=== PATIENT | male | born 1970 | race Caucasian/White ===

== ENCOUNTER 2017-06-01 20:27 | Emergency (ER) | payer BC ==
[~2017-06-01] VITALS: Ht 175.3 cm; Wt 80.0 kg
[~2017-06-01 20:27] MED LIST: PRIL20TA2 PO
[2017-06-01 20:30] VITALS: BP 195/115; PULSE 88; RESP 16; TEMP 98.9; O2SAT 97
[2017-06-01 22:15] VITALS: BP 184/110; PULSE 88; RESP 18; O2SAT 99
[2017-06-01] MEDS ORDERED: SODIUM CHLOR 0.9% 1000 ML INJ 1,000 ML IV SCH (22:30)
[2017-06-01] MEDS ORDERED: SODIUM CHLORIDE 0.9% FLUSH 10 ML FLUSH IV FLUSH PRN (22:30)
[2017-06-01 22:43] VITALS: O2SAT 100
[2017-06-01 23:03] LABS: AUTOMATED NEUTROPHIL # 9.8 TH/MM3 (1.8-7.7); BASOPHIL # 0.1 TH/MM3 (0-0.2); BASOPHIL % 0.6 % (0.0-2.0); EOSINOPHIL # 0.2 TH/MM3 (0-0.4); EOSINOPHIL % 1.2 % (0.0-4.0); HEMATOCRIT 45.2 % (39.0-51.0); HEMO FLAGS DIFF FINAL; LYMPH % 20.5 % (9.0-44.0); LYMPHOCYTE # 2.9 TH/MM3 (1.0-4.8); MEAN CORPUSCULAR HEMOGLOBIN 31.6 PG (27.0-34.0); MEAN CORPUSCULAR HGB CONC 34.7 % (32.0-36.0); MONO % 8.7 % (0.0-8.0); PLATELET COUNT 296 TH/MM3 (150-450); RED BLOOD COUNT 4.97 MIL/MM3 (4.50-5.90); RED CELL DISTRIBUTION WIDTH 12.6 % (11.6-17.2); WHITE BLOOD COUNT 14.2 TH/MM3 (4.0-11.0)
[2017-06-01 23:09] LABS: BLOOD, URINE TRACE (NEG); GLUCOSE,URINE NEG (NEG); KETONE, URINE NEG (NEG); NITRITE,URINE NEG (NEG); PH, URINE 6.5 (5.0-8.5); URINE COLOR YELLOW (YELLW/STRAW)
[2017-06-01 23:11] LABS: COMMENT (UR) CULT NOT INDICATED; CULTURE IF INDICATED CULT NOT INDICATED
[2017-06-01 23:26] LABS: ANION GAP 6 MEQ/L (5-15); AST (GOT) 10 U/L (15-37); BICARBONATE 25.6 MEQ/L (21.0-32.0); BLOOD UREA NITROGEN 14 MG/DL (7-18); CHLORIDE 105 MEQ/L (98-107); GLOMERULAR FILTRATION RATE 78 ML/MIN (>89); POTASSIUM 3.4 MEQ/L (3.5-5.1); SODIUM (NA) 137 MEQ/L (136-145)
[2017-06-01 23:27] LABS: ALT (GPT) 21 U/L (12-78)
[2017-06-01 23:29] LABS: ALKALINE PHOSPHATASE 82 U/L (45-117); TOTAL BILIRUBIN ADULT 0.4 MG/DL (0.2-1.0)
--- NOTE | 2017-06-01 23:36 | PD ---
HPI . abdominal pain Chief Complaint: Abdominal Pain Time Seen by Provider: 22:03 Travel History International Travel<30 days: No Contact w/Intl Traveler<30days: No Traveled to known affect area: No History of Present Illness HPI 46 year old male that presents to the ED complaining of abdominal pain. Pain is located in his lower abdomen, suprapubic area. He has had it for 3 days. Describes the pain as dull. Rates it as a 6/10. He only has the pain when he changes positions. He describes that going from sitting to standing is when he experiences the pain. Some radiation through to his back. He does not experience the pain if he just lays still and is at rest. Patient tried some ibuprofen with no relief. He has never had anything like this before. Denies any fevers, nausea, vomiting, diarrhea, dysuria, frequency, or changes in his bowels. Had a bowel movement this morning which he states was normal. PFSH Past Medical History Hx Anticoagulant Therapy: No Cardiovascular Problems: No Chemotherapy: No Cerebrovascular Accident: No Diabetes: No GERD: Yes Respiratory: No Past Surgical History Other Surgery: Yes (R. HEEL SURGERY ) Social History Alcohol Use: No Tobacco Use: Yes (1PPD ) Substance Use: No Allergies-Medications (Allergen,Severity, Reaction): Coded Allergies: No Known Allergies (Unverified , 06/01/17) Reported Meds & Prescriptions Reported Meds & Active Scripts Active No Active Prescriptions or Reported Medications Review of Systems General / Constitutional: No: Fever, Chills HENT: No: Headaches Cardiovascular: No: Chest Pain or Discomfort Respiratory: No: Shortness of Breath, Wheezing Gastrointestinal: Positive: Abdominal Pain, No: Nausea, Vomiting, Diarrhea, Constipation, Loss of Appetite Genitourinary: No: Urgency, Frequency, Dysuria Skin: No Rash Physical Exam Narrative GENERAL: Awake and alert male appearing stated age in no acute distress. SKIN: Focused skin assessment warm/dry. HEAD: Atraumatic. Normocephalic. EYES: Pupils equal and round. No scleral icterus. No injection or drainage. ENT: No nasal bleeding or discharge. Mucous membranes pink and moist. NECK: Trachea midline. No JVD. CARDIOVASCULAR: Regular rate and rhythm. No murmur appreciated. RESPIRATORY: No accessory muscle use. Clear to auscultation. Breath sounds equal bilaterally. No wheezing, crackles, rales, or rhonchi. GASTROINTESTINAL: Abdomen soft, nondistended. Mild tenderness elicited in the right lower quadrant. No suprapubic tenderness. Hepatic and splenic margins not palpable. MUSCULOSKELETAL: No obvious deformities. No clubbing. No cyanosis. No edema. NEUROLOGICAL: Awake and alert. No obvious cranial nerve deficits. Motor grossly within normal limits. Normal speech. PSYCHIATRIC: Appropriate mood and affect; insight and judgment normal. Data Data Last Documented VS Vital Signs Date Time Temp Pulse Resp B/P Pulse Ox O2 Delivery O2 Flow Rate FiO2 06/02/17 01:31 76 18 171/96 98 06/01/17 22:15 Room Air 06/01/17 20:30 98.9 Orders Complete Blood Count With Diff (06/01/17 22:30) Comprehensive Metabolic Panel (06/01/17 22:30) Lipase (06/01/17 22:30) Urinalysis - C+S If Indicated (06/01/17 22:30) Ct Abd/Pel W Iv Contrast(Rout) (06/01/17 22:30) Iv Access Insert/Monitor (06/01/17 22:30) Ecg Monitoring (06/01/17 22:30) Oximetry (06/01/17 22:30) Sodium Chlor 0.9% 1000 Ml Inj (Ns 1000 M (06/01/17 22:30) Sodium Chloride 0.9% Flush (Ns Flush) (06/01/17 22:30) Iohexol 350 Inj (Omnipaque 350 Inj) (06/02/17 00:33) Labs Laboratory Tests Test 06/01/17 06/01/17 20:40 22:40 Urine Color YELLOW Urine Turbidity CLEAR Urine pH 6.5 Urine Specific [place] 1.015 Urine Protein NEG mg/dL Urine Glucose (UA) NEG mg/dL Urine Ketones NEG mg/dL Urine Occult Blood TRACE Urine Nitrite NEG Urine Bilirubin NEG Urine Urobilinogen LESS THAN 2.0 MG/DL Urine Leukocyte Esterase NEG Urine RBC 1 /hpf Urine WBC 1 /hpf Microscopic Urinalysis Comment CULT NOT INDICATED White Blood Count 14.2 TH/MM3 Red Blood Count 4.97 MIL/MM3 Hemoglobin 15.7 GM/DL Hematocrit 45.2 % Mean Corpuscular Volume 91.0 FL Mean Corpuscular Hemoglobin 31.6 PG Mean Corpuscular Hemoglobin 34.7 % Concent Red Cell Distribution Width 12.6 % Platelet Count 296 TH/MM3 Mean Platelet Volume 8.3 FL Neutrophils (%) (Auto) 69.0 % Lymphocytes (%) (Auto) 20.5 % Monocytes (%) (Auto) 8.7 % Eosinophils (%) (Auto) 1.2 % Basophils (%) (Auto) 0.6 % Neutrophils # (Auto) 9.8 TH/MM3 Lymphocytes # (Auto) 2.9 TH/MM3 Monocytes # (Auto) 1.2 TH/MM3 Eosinophils # (Auto) 0.2 TH/MM3 Basophils # (Auto) 0.1 TH/MM3 CBC Comment DIFF FINAL Differential Comment Sodium Level 137 MEQ/L Potassium Level 3.4 MEQ/L Chloride Level 105 MEQ/L Carbon Dioxide Level 25.6 MEQ/L Anion Gap 6 MEQ/L Blood Urea Nitrogen 14 MG/DL Creatinine 1.02 MG/DL Estimat Glomerular Filtration 78 ML/MIN Rate Random Glucose 129 MG/DL Calcium Level 8.9 MG/DL Total Bilirubin 0.4 MG/DL Aspartate Amino Transf 10 U/L (AST/SGOT) Alanine Aminotransferase 21 U/L (ALT/SGPT) Alkaline Phosphatase 82 U/L Total Protein 7.5 GM/DL Albumin 3.9 GM/DL Lipase 119 U/L [facility] Medical Decision Making Medical Screen Exam Complete: Yes Emergency Medical Condition: Yes Interpretation(s) Laboratory Tests Test 06/01/17 06/01/17 20:40 22:40 Urine Color YELLOW Urine Turbidity CLEAR Urine pH 6.5 Urine Specific [place] 1.015 Urine Protein NEG mg/dL Urine Glucose (UA) NEG mg/dL Urine Ketones NEG mg/dL Urine Occult Blood TRACE Urine Nitrite NEG Urine Bilirubin NEG Urine Urobilinogen LESS THAN 2.0 MG/DL Urine Leukocyte Esterase NEG Urine RBC 1 /hpf Urine WBC 1 /hpf Microscopic Urinalysis Comment CULT NOT INDICATED White Blood Count 14.2 TH/MM3 Red Blood Count 4.97 MIL/MM3 Hemoglobin 15.7 GM/DL Hematocrit 45.2 % Mean Corpuscular Volume 91.0 FL Mean Corpuscular Hemoglobin 31.6 PG Mean Corpuscular Hemoglobin 34.7 % Concent Red Cell Distribution Width 12.6 % Platelet Count 296 TH/MM3 Mean Platelet Volume 8.3 FL Neutrophils (%) (Auto) 69.0 % Lymphocytes (%) (Auto) 20.5 % Monocytes (%) (Auto) 8.7 % Eosinophils (%) (Auto) 1.2 % Basophils (%) (Auto) 0.6 % Neutrophils # (Auto) 9.8 TH/MM3 Lymphocytes # (Auto) 2.9 TH/MM3 Monocytes # (Auto) 1.2 TH/MM3 Eosinophils # (Auto) 0.2 TH/MM3 Basophils # (Auto) 0.1 TH/MM3 CBC Comment DIFF FINAL Differential Comment Sodium Level 137 MEQ/L Potassium Level 3.4 MEQ/L Chloride Level 105 MEQ/L Carbon Dioxide Level 25.6 MEQ/L Anion Gap 6 MEQ/L Blood Urea Nitrogen 14 MG/DL Creatinine 1.02 MG/DL Estimat Glomerular Filtration 78 ML/MIN Rate Random Glucose 129 MG/DL Calcium Level 8.9 MG/DL Total Bilirubin 0.4 MG/DL Aspartate Amino Transf 10 U/L (AST/SGOT) Alanine Aminotransferase 21 U/L (ALT/SGPT) Alkaline Phosphatase 82 U/L Total Protein 7.5 GM/DL Albumin 3.9 GM/DL Lipase 119 U/L CT of the abdomen and pelvis reveals no acute findings. Differential Diagnosis Differentials include UTI, appendicitis, pancreatitis, musculoskeletal strain, diverticulitis. Narrative Course Patient presents with 3 days of lower abdominal pain that is worse when he goes to stand and then resolves after a few minutes. No other GI symptoms including nausea, vomiting, diarrhea. IV was established, labs are drawn and sent, and the patient was placed on cardiac telemetry monitoring and continuous pulse oximetry monitoring. CT of the abdomen was ordered. White count is mildly elevated at 14.2. CMP and lipase are unremarkable. UA is negative. CT of the abdomen and pelvis reveals no acute abnormalities. The patient does have pain with flexion of the hips bilaterally in the lower aspect of the abdomen, may be secondary to muscle strain. CT the abdomen and pelvis is negative for appendicitis. Laboratory evaluation is essentially unremarkable except for mildly elevated white count. The patient is advised to follow-up with her primary physician. Nonsteroidal inflammatories as directed. Diagnosis Primary Impression: Abdominal wall strain Qualified Code: S39.011A - Abdominal wall strain, initial encounter Patient Instructions: General Instructions Additional Instructions: Please provide the patient a copy of his CT results and lab results at discharge. Follow-up with her primary physician in regards to her blood pressure. [id number] nonsteroidals as needed for the abdominal wall strain. Return if symptoms worsen or progress. Med/Other Pt SpecificInfo: Prescription(s) given Scripts Hydrocodone-Acetaminophen ([place])5-325 mg Tab1 Tab PO Q6H PRN (PAIN) #10 TAB Ref 0 Prov:Jose Mckeon MD 06/02/17 Ibuprofen 600 Mg Cig194 Mg PO Q6H PRN (Pain/Inflammation) #20 TAB Ref 0 Prov:Jose Mckeon MD 06/02/17 Condition: Stable Jose Mckeon MD Jun 01, 2017 23:36
[2017-06-02] MEDS ORDERED: IOHEXOL 350 MG/ML 10 ML VIAL (for RAD DIAG) IV ONE (00:33)
--- NOTE | 2017-06-02 00:53 | RADRPT ---
EXAM DATE/TIME: 06/02/2017 00:15 [facility] COMPARISON: CT ABDOMEN & PELVIS W CONTRAST, September 21, 2015, 14:26. INDICATIONS : Bilateral lower quadrant pain. IV CONTRAST: 95 cc Omnipaque 350 (iohexol) IV ORAL CONTRAST: No oral contrast ingested. RADIATION DOSE: 9.96 CTDIvol (mGy) MEDICAL HISTORY : Gastroesophageal reflux disease. SURGICAL HISTORY : None. ENCOUNTER: Initial ACUITY: 2 days PAIN SCALE: 2/10 LOCATION: Bilateral lower quadrant TECHNIQUE: Volumetric scanning of the abdomen and pelvis was performed. Using automated exposure control and ad justment of the mA and/or kV according to patient size, radiation dose was kept as low as reasonably achievable to obtain optimal diagnostic quality images. DICOM format image data is available electro nically for review and comparison. FINDINGS: LOWER LUNGS: The visualized lower lungs are clear. LIVER: Homogeneous density without lesion. There is no dilation of the biliary tree. No calcified gallston es. SPLEEN: Normal size without lesion. PANCREAS: Within normal limits. KIDNEYS: Normal in size and shape. There is no mass, stone or hydronephrosis. ADRENAL GLANDS: Within normal limits. VASCULAR: There is no aortic aneurysm. There is mild atherosclerotic disease. BOWEL/MESENTERY: The stomach, small bowel, and colon demonstrate no acute abnormality. There is no free intraperitone al air or fluid. The appendix is normal. Small hiatal hernia is present. ABDOMINAL WALL: Within normal limits. RETROPERITONEUM: There is no lymphadenopathy. BLADDER: No wall thickening or mass. REPRODUCTIVE: Within normal limits. INGUINAL: There is no lymphadenopathy or hernia. MUSCULOSKELETAL: No acute abnormality is identified. CONCLUSION: No acute finding is identified within the abdomen or pelvis to explain the clinical symptoms. Nickolas Anderson MD on June 02, 2017 at 0:48 Board Certified Radiologist. This report was verified electronically.
[2017-06-02 01:31] VITALS: BP 171/96
[2017-06-02] MEDS ORDERED: IBUP-232 PO (01:58)
[2017-06-02] MEDS ORDERED: NORC5TAB PO (01:58)
== END 2017-06-02 02:05 | disposition home or self-care (01) ==
LOC: NEPC 20:27
DX: S39.011A Strain of muscle, fascia and tendon of abdomen, initial encounter (principal); K21.9 Gastro-esophageal reflux disease without esophagitis; F17.200 Nicotine dependence, unspecified, uncomplicated; X58.XXXA Exposure to other specified factors, initial encounter
CPT/HCPCS: 74177; 80053; 81001; 83690; 85025; 99285; J7030; Q9967